=== PATIENT | female | born 1950 | race Caucasian/White ===

== ENCOUNTER 2022-09-16 07:16 | Outpatient (CLI) | payer MEDICARE, OTHER ==
[2022-09-16] MEDS ORDERED: Iopamidol 370 76% 100 ML VIAL ONE (11:26)
[2022-09-16] MEDS ORDERED: Magnevist 469MG/ML 20 ML VIAL ONE (11:32)
== END 2022-09-16 07:17 | disposition home or self-care (01) ==
LOC: CSHCT 07:16
PROVIDERS: ATTEND Student in an Organized Health Care Education/Training Program
DX: G45.9 Transient cerebral ischemic attack, unspecified (principal); E04.1 Nontoxic single thyroid nodule
CPT/HCPCS: 70498; 70553; 82565

== ENCOUNTER 2022-10-25 15:25 | Outpatient (CLI) | payer MEDICARE, OTHER | END 2022-10-25 15:26 | disposition home or self-care (01) | LOC: CSHULT 15:25 | PROVIDERS: ATTEND Student in an Organized Health Care Education/Training Program | DX: E04.1 Nontoxic single thyroid nodule (principal) | CPT/HCPCS: 76536 ==

== ENCOUNTER 2023-09-08 12:23 | Outpatient (CLI) | payer MEDICARE, OTHER | END 2023-09-08 12:24 | disposition home or self-care (01) | LOC: CSHULT 12:23 | PROVIDERS: ATTEND Student in an Organized Health Care Education/Training Program | DX: E04.1 Nontoxic single thyroid nodule (principal) | CPT/HCPCS: 76536 ==

== ENCOUNTER 2024-03-22 08:37 | Outpatient (CLI) | payer MEDICARE | END 2024-03-22 08:38 | disposition home or self-care (01) | LOC: CSHMAMMO 08:37 | PROVIDERS: ATTEND Internal Medicine Hematology & Oncology | DX: M85.89 Other specified disorders of bone density and structure, multiple sites (principal) | CPT/HCPCS: 77080 ==